=== PATIENT | male | born 1970 | race Caucasian/White ===

== ENCOUNTER → 2018-06-03 14:01 | Outpatient (CLI) | payer SELFPAY ==
[2018-06-03 14:34] LABS: Hematocrit 43.5 % (41-53); Hemoglobin 14.2 g/dL (13.5-17.5); Mean Corpuscular HGB Conc 32.5 % (30-36); Mean Corpuscular Hemoglobin 29.2 PG (26-34); Mean Corpuscular Volume 89.7 fL (80-100); Platelet Count 259 X10^3/uL (150-400); Red Blood Cell Count 4.85 X10^6/uL (4.5-5.9); Red Cell Distribution Width 16.7 % (11.6-14.8); White Blood Cell Count 7.6 X10^3/uL (4.5-11.0)
[2018-06-03 14:54] LABS: Neutrophils Absolute Manual 5092 /uL (3000-5900); Total Cells Counted 100
[2018-06-03 14:55] LABS: BUN Creatinine Ratio 8.9 (6-22); Blood Urea Nitrogen 8 mg/dL (9-20); Calcium 8.9 mg/dL (8.4-10.2); Carbon Dioxide 29 mmol/L (22-32); Chloride 99 mmol/L (98-107); Estimated Glomerular Filt Rate > 60.0 mL/min (>60); Glucose 93 mg/dL (70-100); HEMOLYSIS < 15 (0-50); Morphology Comment Normal Morphology; Potassium 4.2 mmol/L (3.4-5.1); Sodium 137 mmol/L (137-145)
== END ==
PROVIDERS: PCP Physician Assistant; Visit Provider Physician Assistant
DX: R60.9 Edema, unspecified (principal); L03.90 Cellulitis, unspecified
CPT/HCPCS: 36415; 80048; 83880; 85025

== ENCOUNTER 2018-06-13 14:31 | Emergency (ER) | payer SELFPAY ==
[2018-06-13 14:38] VITALS: BP 152/97; PULSE 118; RESP 18; TEMP 36.8; O2SAT 97; BMI 62.4
--- NOTE | 2018-06-13 15:03 | DI.RAD.S_ITS ---
PROCEDURE: XR CHEST 2V INDICATIONS: sob, chf, recent abx TECHNIQUE: 2 views of the chest were acquired. COMPARISON: None. FINDINGS: Surgical changes and devices: None. Lungs and pleura: There is mild pulmonary edema. A small right pleural effusion is present with asymmetric patchy right basilar opacities. Mediastinum: Heart size is enlarged. Bones and chest wall: No suspicious bony abnormalities. Soft tissues appear unremarkable. IMPRESSION: 1. Asymmetric right basilar opacities suggestive of consolidation and pneumonia. 2. Small right pleural effusion. 3. Mild pulmonary edema. Dictated by: Faraz Bee M.D. on 06/13/2018 at 15:43 Approved by: Faraz Bee M.D. on 06/13/2018 at 15:44
[2018-06-13 15:04] VITALS: BP 154/96; PULSE 118; RESP 28; O2SAT 95
[2018-06-13 15:18] LABS: Add Manual Diff / Slide Review NO; Eosinophils Percent Auto 0.4 % (2-4); Hematocrit 45.4 % (41-53); Hemoglobin 14.8 g/dL (13.5-17.5); Lymphocytes Percent Auto 18.6 % (25-40); Mean Corpuscular HGB Conc 32.6 % (30-36); Mean Corpuscular Hemoglobin 28.6 PG (26-34); Mean Corpuscular Volume 87.7 fL (80-100); Monocytes Percent Auto 11.4 % (3-14); Neutrophils Absolute Auto 5600 /uL (3000-5900); Neutrophils Percent Auto 68.6 % (50-75); Platelet Count 299 X10^3/uL (150-400); Red Blood Cell Count 5.18 X10^6/uL (4.5-5.9); Red Cell Distribution Width 16.4 % (11.6-14.8); White Blood Cell Count 8.2 X10^3/uL (4.5-11.0)
[2018-06-13] MEDS: ASPIRIN 81 MG TAB 324 MG PO (15:39)
[2018-06-13 15:52] LABS: INR 1.2 (0.9-1.3); Prothrombin Time 13.5 SECONDS (10.1-12.7)
[2018-06-13 15:55] LABS: PTT Partial Thromboplastin Tim 24 SECONDS (26.4-36.2)
[2018-06-13 16:00] LABS: Alanine Aminotransferase 23 IU/L (21-72); Albumin 3.7 g/dL (3.5-5.0); Albumin Globulin Ratio 1.3 (1.0-2.8); Alkaline Phosphatase 63 U/L (38-126); Aspartate Aminotransferase 31 IU/L (17-59); BUN Creatinine Ratio 12.5 (6-22); Bilirubin Total 2.3 mg/dL (0.2-1.3); Blood Urea Nitrogen 10 mg/dL (9-20); Carbon Dioxide 30 mmol/L (22-32); Chloride 96 mmol/L (98-107); Creatine Kinase 96 U/L (55-170); Estimated Glomerular Filt Rate > 60.0 mL/min (>60); Globulin 2.9 g/dL (1.7-4.1); Glucose 97 mg/dL (70-100); HEMOLYSIS < 15 (0-50); Lipase 59 U/L (23-300); Potassium 3.9 mmol/L (3.4-5.1); Sodium 136 mmol/L (137-145); Total Protein 6.6 g/dL (6.3-8.2)
[2018-06-13 16:10] LABS: Troponin I 0.019 ng/mL (0.01-0.034)
[2018-06-13 16:34] VITALS: BP 125/90; PULSE 112; RESP 24; O2SAT 96
[2018-06-13 17:02] VITALS: BP 137/89; PULSE 114; RESP 24; O2SAT 96
[2018-06-13 17:51] VITALS: BP 136/94; PULSE 117; RESP 20; O2SAT 100
[2018-06-13] MEDS: FUROSEMIDE 100 MG/10 ML VIAL 60 MG IV (18:12)
--- NOTE | 2018-06-13 18:13 | ED.RECABL ---
HPI - Recheck/Abnormal Lab/Rx General Chief Complaint: Recheck/Abnormal Lab/Rx Stated Complaint: sent from walk in clinic for abnormal EKG Time Seen by Provider: 06/13/18 14:54 History of Present Illness HPI narrative: HPI 47-year-old morbidly obese male with a history of CHF, poor medication compliance, and recent weight gain with orthopnea and increased abdominal and bilateral pedal edema presents from urgent care for evaluation after recent additional weight gain despite 10 mg Lasix daily. Patient denies recent chest pain, cough, fevers, chills. Patient previously has seen a taper/finisher for a history of CAD with 2 stents. M/S/F/SocHx notable for: please see HPI; remainder reviewed with patient and in chart. ROS: Negative constitutional, eye, cardiovascular, pulmonary, GI, , MSK, skin, neurologic, psychiatric, endocrine unless noted in the HPI. Exam Gen: Pleasant, non-toxic appearing, resting comfortably. HEENT: NC, AT, PEERL, EOMI. Resp: diminished breath sounds in lung bases bilaterally, otherwise clear to auscultation bilaterally, normal work of breathing, no accessory muscle usage. Card: Regular rate and rhythm with no murmurs, rubs, or gallops, extremities warm and well perfused. 1+ pitting edema in the lower abdominal wall, 2+ pitting edema to the knees bilaterally. GI: Non-tender to palpation throughout all quadrants, no focal tenderness at McBurney's point, negative Lewis's sign, non-distended, no rebound or guarding. : No suprapubic tenderness to palpation. MSK: No visible deformities, strength and tone without visually appreciable deficit. Patient ambulatory with a normal narrow based nonantalgic gait. Skin: Normal color with no visible lesions. Neuro: AO x 3, no facial asymmetry, vision and hearing WNL. Psych: Mood and affect appropriate. Labs / Imaging: WBC 8.2, hemoglobin 14.8 PT/INR 1.2 sodium 136, potassium 3.9, BUN 10, creatinine 0.80, troponin 0.019, BNP 671.0 CXR: asymmetric right basilar opacity suggestive of consolidation pneumonia. Small right pleural effusion. Mild pulmonary edema. MDM Previous chart, nursing note, labs, imaging, and vitals reviewed. A: 47-year-old morbidly obese male with a history of CHF, poor medication compliance, and recent weight gain with orthopnea and increased abdominal and bilateral pedal edema presents from urgent care for evaluation after recent additional weight gain despite 10 mg Lasix daily. DDx & Evaluation: patient was clinically worsening congestive heart failure, mild tachycardia, nonischemic EKG, and negative troponin. Suspect tachycardia is secondary to demand, patient is without anemia. No evidence of valvular abnormalities by auscultation, no recent history of chest pain, acute changes in clinical trajectory, or other findings to suggest a recent silent [place]. Patient given 60 mg Lasix IV, discharge with RX for 40 mg daily, and instructions to follow up immediately with his taper/finisher. Patient instructed to return to the ED in 2 days for repeat electrolyte check and repeat examination should he be unable to follow up with his taper/finisher in a timely manner. Extensive discussion was had with the patient regarding hospitalization for inpatient echo and initial diuresis, patient wished to be discharged home, as he was resting comfortably, clinically well compensated, and there is no recent discernible change in his trajectory he is appropriate for outpatient management, patient is aware that this is a slightly higher risk approach but does not wish to be hospitalized. Impression: congestive heart failure (please reference below for remainder of encounter information) Related Data Previous Rx's Medication Instructions Recorded furosemide 20 mg tablet 20 mg PO BID #60 tab 06/03/18 Allergies Allergy/AdvReac Type Severity Reaction Status Date / Time No Known Allergies Allergy Uncoded 06/13/18 12:39 [facility] Social History Smoking Status: Former smoker Exam Initial Vital Signs Initial Vital Signs: Vital Signs Temperature 98.2 F 06/13/18 14:38 Pulse Rate 118 H 06/13/18 14:38 Respiratory Rate 18 06/13/18 14:38 Blood Pressure 152/97 H 06/13/18 14:38 Pulse Oximetry 97 06/13/18 14:38 Course Orders Ordered: ED Orders 06/13/18 15:00 B Type Natriuretic Peptide Stat Complete Blood Count AUTO DIFF Stat 06/13/18 15:03 Chest [XR chest 2V] Stat 06/13/18 15:35 Comprehensive Metabolic Panel Stat Lipase Stat Partial Thromboplastin Time Stat Prothrombin Time INR Stat Troponin & CK Cardiac Panel Stat Discontinued Medications Aspirin (Aspirin Chew) 324 mg PO NOW ONE Stop: 06/13/18 15:04 Last Admin: 06/13/18 15:39 Dose: 243 mg Furosemide (Lasix) 60 mg IV NOW ONE Stop: 06/13/18 18:11 Last Admin: 06/13/18 18:12 Dose: 60 mg Vital Signs - 8 hr 06/13/18 14:38 06/13/18 15:04 06/13/18 16:34 Temperature 98.2 F Pulse Rate 118 H 118 H 112 H Respiratory Rate 18 28 H 24 Blood Pressure 152/97 H Blood Pressure [Left Wrist] 154/96 H 125/90 H Pulse Oximetry 97 95 96 06/13/18 17:02 06/13/18 17:51 Temperature Pulse Rate 114 H 117 H Respiratory Rate 24 20 Blood Pressure Blood Pressure [Left Wrist] 137/89 H 136/94 H Pulse Oximetry 96 100 MDM - Recheck/Abnormal Lab/Rx Lab Data Result diagrams: 06/13/18 15:00 06/13/18 15:35 Lab Results 06/13/18 06/13/18 06/13/18 Range/Units 15:00 15:00 15:35 WBC 8.2 (4.5-11.0) X10^3/uL RBC 5.18 (4.5-5.9) X10^6/uL Hgb 14.8 (13.5-17.5) g/dL Hct 45.4 (41-53) % MCV 87.7 (80-100) fL MCH 28.6 (26-34) PG MCHC 32.6 (30-36) % RDW 16.4 H (11.6-14.8) % Plt Count 299 (150-400) X10^3/uL Neut % (Auto) 68.6 (50-75) % Lymph % (Auto) 18.6 L (25-40) % [place] % (Auto) 11.4 (3-14) % Eos % (Auto) 0.4 L (2-4) % Baso % (Auto) 1.0 (0-2) % Neut # (Auto) 5600 (3934-2207) /uL PT 13.5 H (10.1-12.7) SECONDS INR 1.2 (0.9-1.3) APTT 24 L (26.4-36.2) SECONDS Sodium (137-145) mmol/L Potassium (3.4-5.1) mmol/L Chloride (98-107) mmol/L Carbon Dioxide (22-32) mmol/L BUN (9-20) mg/dL Creatinine (0.66-1.25) mg/dL Estimated GFR (>60) mL/min BUN/Creatinine Ratio (6-22) Glucose (70-100) mg/dL Calcium (8.4-10.2) mg/dL Total Bilirubin (0.2-1.3) mg/dL AST (17-59) IU/L ALT (21-72) IU/L Alkaline Phosphatase (38-126) U/L Total Creatine Kinase (55-170) U/L Troponin I (0.01-0.034) ng/mL B-Natriuretic Peptide 671.0 H (<100) Total Protein (6.3-8.2) g/dL Albumin (3.5-5.0) g/dL Globulin (1.7-4.1) g/dL Albumin/Globulin Ratio (1.0-2.8) Lipase (23-300) U/L 06/13/18 Range/Units 15:35 WBC (4.5-11.0) X10^3/uL RBC (4.5-5.9) X10^6/uL Hgb (13.5-17.5) g/dL Hct (41-53) % MCV (80-100) fL MCH (26-34) PG MCHC (30-36) % RDW (11.6-14.8) % Plt Count (150-400) X10^3/uL Neut % (Auto) (50-75) % Lymph % (Auto) (25-40) % [place] % (Auto) (3-14) % Eos % (Auto) (2-4) % Baso % (Auto) (0-2) % Neut # (Auto) (8452-6652) /uL PT (10.1-12.7) SECONDS INR (0.9-1.3) APTT (26.4-36.2) SECONDS Sodium 136 L (137-145) mmol/L Potassium 3.9 (3.4-5.1) mmol/L Chloride 96 L (98-107) mmol/L Carbon Dioxide 30 (22-32) mmol/L BUN 10 (9-20) mg/dL Creatinine 0.80 (0.66-1.25) mg/dL Estimated GFR > 60.0 (>60) mL/min BUN/Creatinine Ratio 12.5 (6-22) Glucose 97 (70-100) mg/dL Calcium 9.0 (8.4-10.2) mg/dL Total Bilirubin 2.3 H (0.2-1.3) mg/dL AST 31 (17-59) IU/L ALT 23 (21-72) IU/L Alkaline Phosphatase 63 (38-126) U/L Total Creatine Kinase 96 (55-170) U/L Troponin I 0.019 (0.01-0.034) ng/mL B-Natriuretic Peptide (<100) Total Protein 6.6 (6.3-8.2) g/dL Albumin 3.7 (3.5-5.0) g/dL Globulin 2.9 (1.7-4.1) g/dL Albumin/Globulin Ratio 1.3 (1.0-2.8) Lipase 59 (23-300) U/L Discharge Plan Departure Prescriptions: No Action furosemide [Lasix] 20 mg tablet 20 mg PO BID Qty: 60 RF: 0
[2018-06-13 18:15] VITALS: BP 139/105; PULSE 111; RESP 18
== END 2018-06-13 18:29 | disposition home or self-care (01) ==
PROVIDERS: Emergency Provider Emergency Medicine; Family Provider Family Medicine; PCP Physician Assistant
DX: I50.9 Heart failure, unspecified (principal)
CPT/HCPCS: 36415; 36591; 71046; 80053; 82550; 82553; 83690; 83880; 84484; 85025; 85610; 85730; 93005; 93010; 96374; 99283; 99285; J1940

== ENCOUNTER 2018-06-15 11:12 | Emergency (ER) | payer SELFPAY ==
[2018-06-15 11:26] VITALS: BP 147/99; PULSE 117; RESP 20; TEMP 36.8; O2SAT 97; BMI 62.4
--- NOTE | 2018-06-15 11:51 | PC.NURSE ---
states is feeling better than yesterday, asked to come here for follow up, does not have primary.
--- NOTE | 2018-06-15 12:12 | ED_ITS ---
HPI - SOB/Dyspnea General Chief Complaint: Shortness of Breath/Dyspnea Stated Complaint: ELECTROLYTES/REEVALTUATION Time Seen by Provider: 06/15/18 12:07 Source: patient Mode of arrival: ambulatory History of Present Illness Patient is a 47-year-old male seen here in the emergency department a couple days ago for what appeared to be an exacerbation of CHF. According to the providers noted that time it did appear that an admission was offered however the patient did not want to be admitted. The patient did increase his Lasix. He stated that he could not get in to see his human resources hr representative in a ?timely manner ? so he return to the emergency department today for recheck of his labs and re- evaluation as he was instructed during his last visit here. He states that he feels much better since his last visit. Still having some swelling in his right lower extremity however this is not new for him. Related Data Home Medications Medication Instructions Recorded Confirmed Blood Pressure Support 1 tab PO BID 06/15/18 06/15/18 Platexia 1 tab PO BID 06/15/18 06/15/18 Previous Rx's Medication Instructions Recorded furosemide [Lasix] 40 mg PO DAILY #14 tab 06/13/18 Allergies Allergy/AdvReac Type Severity Reaction Status Date / Time No Known Drug Allergies Allergy Verified 06/15/18 11:26 Review of Systems Constitutional Denies fever(s) and Denies headache(s) ENT Ears, Nose, Mouth, and Throat: Denies vertigo, Denies dizziness and Denies headache(s) Cardiovascular Denies chest pain and Denies dyspnea Respiratory Denies dyspnea Gastrointestinal Gastrointestinal: Reports bloating, Denies diarrhea, Denies nausea and Denies vomiting Genitourinary Denies dysuria Musculoskeletal Denies myalgias Comments: Right lower extremity swelling Integumentary/Breasts Denies lesions and Denies rash Neurologic Denies vertigo, Denies dizziness and Denies headache(s) Hematologic/Lymphatic Denies easy bleeding and Denies easy bruising [facility] Medical History Congestive heart failure (Acute) Coronary artery disease (Acute) Surgical History No pertinent past surgical history (Acute) Social History Smoking Status: Former smoker Exam Initial Vital Signs Initial Vital Signs: Vital Signs Temperature 98.3 F 06/15/18 11:26 Pulse Rate 117 H 06/15/18 11:26 Respiratory Rate 20 06/15/18 11:26 Blood Pressure 147/99 H 06/15/18 11:26 Pulse Oximetry 97 06/15/18 11:26 Const General: cooperative, healthy appearing, comfortable, well developed, well groomed and No acute distress Nutritional Appearance: obese Resp Effort & Inspection: normal respiratory effort Auscultation: clear to auscultation bilaterally Cardio Rate: tachycardic Rhythm: regular rhythm Pulses: radial pulses present Skin Lesions: no lesions Rashes: no rashes Neuro General: alert, awake and oriented x3 Cognition: normal cognition Speech: speech normal Extrem General: normal to inspection, No calf tenderness and edema (Right lower extremity) Psych Appearance: grossly normal and well kempt Course Orders Ordered: ED Orders 06/15/18 12:08 B Type Natriuretic Peptide Stat Complete Blood Count AUTO DIFF Stat Comprehensive Metabolic Panel Stat Vital Signs - 8 hr 06/15/18 11:26 06/15/18 12:17 06/15/18 13:00 Temperature 98.3 F Pulse Rate 117 H 113 H 112 H Respiratory Rate 20 25 H 34 H Blood Pressure 147/99 H Blood Pressure [Left Arm] 136/94 H 141/101 H Pulse Oximetry 97 100 100 06/15/18 13:32 Temperature Pulse Rate 108 H Respiratory Rate 25 H Blood Pressure Blood Pressure [Left Arm] 125/81 H Pulse Oximetry 100 MDM - SOB/Dyspnea Lab Data Attestation: I reviewed the patient's lab results. Result diagrams: 06/15/18 12:08 06/15/18 12:08 Lab Results 06/15/18 06/15/18 Range/Units 12:08 12:08 WBC 6.5 (4.5-11.0) X10^3/uL RBC 4.84 (4.5-5.9) X10^6/uL Hgb 14.2 (13.5-17.5) g/dL Hct 42.3 (41-53) % MCV 87.6 (80-100) fL MCH 29.3 (26-34) PG MCHC 33.5 (30-36) % RDW 16.6 H (11.6-14.8) % Plt Count 258 (150-400) X10^3/uL Neut % (Auto) 61.5 (50-75) % Lymph % (Auto) 24.6 L (25-40) % [place] % (Auto) 11.9 (3-14) % Eos % (Auto) 1.0 L (2-4) % Baso % (Auto) 1.0 (0-2) % Neut # (Auto) 4000 (4667-0439) /uL Sodium 136 L (137-145) mmol/L Potassium 3.6 (3.4-5.1) mmol/L Chloride 97 L (98-107) mmol/L Carbon Dioxide 29 (22-32) mmol/L BUN 12 (9-20) mg/dL Creatinine 0.90 (0.66-1.25) mg/dL Estimated GFR > 60.0 (>60) mL/min BUN/Creatinine Ratio 13.3 (6-22) Glucose 100 (70-100) mg/dL Calcium 9.1 (8.4-10.2) mg/dL Total Bilirubin 1.5 H (0.2-1.3) mg/dL AST 38 (17-59) IU/L ALT 29 (21-72) IU/L Alkaline Phosphatase 62 (38-126) U/L B-Natriuretic Peptide 309.0 H (<100) Total Protein 6.9 (6.3-8.2) g/dL Albumin 4.0 (3.5-5.0) g/dL Globulin 2.9 (1.7-4.1) g/dL Albumin/Globulin Ratio 1.4 (1.0-2.8) MDM Narrative Medical decision making narrative: Patient reports an improvement of his symptoms since last time he was here in the emergency department. Patient was tachycardic however he states that he has always been tachycardic since his heart attack which worsens when he comes the emergency department secondary to anxiety. He denies any chest pain. His potassium is unremarkable. His BNP has improved since his last visit. Will make no changes to his medication today. He was instructed that he needed to call his human resources hr representative and primary doctor for a follow-up. He expressed understanding and agreement with plan. Discharge Plan Departure Patient Disposition: Home Clinical Impression: CHF (congestive heart failure) Instructions: Heart Failure Activity Restrictions/Additional Instructions: Continue all the medications as directed from the last time you are here in the emergency department. Highly recommend that you contact your primary doctor and also your human resources hr representative for a follow-up. Return to the emergency department for any new or worsening symptoms Prescriptions: No Action Blood Pressure Support 1 tab PO BID RF: 0 Platexia 1 tab PO BID RF: 0 furosemide [Lasix] 40 mg tablet 40 mg PO DAILY Qty: 14 RF: 0
[2018-06-15 12:17] VITALS: BP 136/94; PULSE 113; RESP 25; O2SAT 100
[2018-06-15 12:19] LABS: Add Manual Diff / Slide Review NO; Hematocrit 42.3 % (41-53); Hemoglobin 14.2 g/dL (13.5-17.5); Lymphocytes Percent Auto 24.6 % (25-40); Mean Corpuscular HGB Conc 33.5 % (30-36); Mean Corpuscular Hemoglobin 29.3 PG (26-34); Mean Corpuscular Volume 87.6 fL (80-100); Monocytes Percent Auto 11.9 % (3-14); Neutrophils Absolute Auto 4000 /uL (3000-5900); Neutrophils Percent Auto 61.5 % (50-75); Platelet Count 258 X10^3/uL (150-400); Red Blood Cell Count 4.84 X10^6/uL (4.5-5.9); Red Cell Distribution Width 16.6 % (11.6-14.8); White Blood Cell Count 6.5 X10^3/uL (4.5-11.0)
[2018-06-15 12:30] LABS: Alanine Aminotransferase 29 IU/L (21-72); Albumin Globulin Ratio 1.4 (1.0-2.8); Alkaline Phosphatase 62 U/L (38-126); Aspartate Aminotransferase 38 IU/L (17-59); BUN Creatinine Ratio 13.3 (6-22); Bilirubin Total 1.5 mg/dL (0.2-1.3); Blood Urea Nitrogen 12 mg/dL (9-20); Calcium 9.1 mg/dL (8.4-10.2); Carbon Dioxide 29 mmol/L (22-32); Chloride 97 mmol/L (98-107); Estimated Glomerular Filt Rate > 60.0 mL/min (>60); Globulin 2.9 g/dL (1.7-4.1); Glucose 100 mg/dL (70-100); HEMOLYSIS < 15 (0-50); Potassium 3.6 mmol/L (3.4-5.1); Sodium 136 mmol/L (137-145); Total Protein 6.9 g/dL (6.3-8.2)
[2018-06-15 13:00] VITALS: BP 141/101; PULSE 112; RESP 34; O2SAT 100
[2018-06-15 13:32] VITALS: BP 125/81; PULSE 108; RESP 25; O2SAT 100
[2018-06-15 13:52] VITALS: BP 125/80; PULSE 100; RESP 26; O2SAT 99
== END 2018-06-15 13:58 | disposition home or self-care (01) ==
PROVIDERS: Emergency Provider Emergency Medicine; Family Provider Family Medicine; PCP Physician Assistant
DX: I50.9 Heart failure, unspecified (principal)
CPT/HCPCS: 36415; 80053; 83880; 85025; 99283

== ENCOUNTER 2018-07-02 16:43 | Emergency (ER) | payer SELFPAY ==
[2018-07-02 16:46] VITALS: BP 137/94; PULSE 122; RESP 20; TEMP 36.1; O2SAT 99; BMI 61.0
--- NOTE | 2018-07-02 17:01 | DI.RAD.S_ITS ---
PROCEDURE: XR CHEST 1V INDICATIONS: CONGESTIVE HEART FAILURE TECHNIQUE: One view of the chest was acquired. COMPARISON: [facility], CR, XR CHEST 2V, 06/13/2018, 14:57. FINDINGS: Surgical changes and devices: None. Lungs and pleura: No pleural effusions or pneumothorax. Lungs are mildly edematous. Mediastinum: Mediastinal contours appear normal. Heart size is globally enlarged, chronic. Bones and chest wall: No suspicious bony lesions. Overlying soft tissues appear unremarkable. IMPRESSION: Acute exacerbation of chronic CHF pattern. Dictated by: Fred Montes M.D. on 07/02/2018 at 17:28 Approved by: Fred Montes M.D. on 07/02/2018 at 17:28
--- NOTE | 2018-07-02 17:03 | ED_ITS ---
HPI - SOB/Dyspnea General Chief Complaint: Shortness of Breath/Dyspnea Stated Complaint: FLUID IN STOMACH Time Seen by Provider: 07/02/18 17:01 Source: patient Mode of arrival: ambulatory Limitations: no limitations Related Data Home Medications Medication Instructions Recorded Confirmed Blood Pressure Support 1 tab PO BID 06/15/18 06/15/18 Platexia 1 tab PO BID 06/15/18 06/15/18 Previous Rx's Medication Instructions Recorded furosemide [Lasix] 40 mg PO DAILY #14 tab 06/13/18 Allergies Allergy/AdvReac Type Severity Reaction Status Date / Time No Known Drug Allergies Allergy Verified 07/02/18 16:52 Review of Systems Review of Systems All systems reviewed & are unremarkable except as noted in HPI and below Constitutional Denies chills, Denies fever(s), Denies lethargy and Denies weakness Eyes Denies change in vision, Denies eye discharge, Denies irritation and Denies loss of vision ENT Ears, Nose, Mouth, and Throat: Denies change in voice, Denies neck pain and Denies sore throat Cardiovascular Denies chest pain, Denies irregular heart rhythm, Denies lightheadedness, Denies palpitations, Denies dyspnea, Denies dyspnea on exertion and Denies orthopnea Respiratory Denies cough, Denies dyspnea, Denies dyspnea on exertion and Denies wheezing Gastrointestinal Gastrointestinal: Denies abdominal pain, Denies change in bowel habits, Denies diarrhea, Denies nausea and Denies vomiting Genitourinary Denies hematuria, Denies flank pain, Denies urinary incontinence and Denies urinary urgency Musculoskeletal Denies neck pain Integumentary/Breasts Denies pruritus, Denies erythema, Denies rash and Denies wounds Neurologic Denies confusion, Denies loss of vision and Denies weakness Psychiatric Denies anxiety, Denies confusion, Denies depression, Denies homicidal ideation and Denies suicidal ideation Endocrine Denies palpitations Hematologic/Lymphatic Denies easy bruising Allergic/Immunologic Denies wheezing PFSH Medical History Congestive heart failure (Chronic) Coronary artery disease (Chronic) Surgical History H/O hernia repair (Resolved) Status post coronary artery stent placement (Resolved) Social History (Reviewed 06/15/18 @ 13:45 by JEREMI Morrison Smoking Status: Former smoker Exam Initial Vital Signs Initial Vital Signs: Vital Signs Temperature 96.9 F L 07/02/18 16:46 Pulse Rate 122 H 07/02/18 16:46 Respiratory Rate 20 07/02/18 16:46 Blood Pressure 137/94 H 07/02/18 16:46 Pulse Oximetry 99 07/02/18 16:46 Const General: cooperative and well developed Nutritional Appearance: well nourished Orientation: alert, awake, oriented x3 and not confused [facility] Head: normocephalic and atraumatic Ears: external ears normal and TM's normal bilaterally Nose: external nose normal and No nasal discharge Face and sinus: sinuses nontender, face symmetric, no sinus tenderness and No dry mucous membranes Mouth: oral mucosae normal and moist mucous membranes Teeth and gingiva: dentition normal Throat: tonsils normal and uvula midline Eyes General: appearance normal, both eyes and all related structures Eyelids: eyelids normal Conjunctivae: conjunctivae normal Sclera: sclerae normal Pupils: PERRL EOM: EOM intact bilaterally Neck Neck: normal visual inspection, trachea midline, No lymphadenopathy, No midline deformity and No JVD Lymphatic: No lymphedema Chest Chest: normal inspection of the chest Resp Effort & Inspection: normal respiratory effort, able to speak in complete sentences, no respiratory distress and no use of accessory muscles Auscultation: clear to auscultation bilaterally, no rales, no rhonchi and no wheezes Cardio Rate: regular rate Rhythm: regular rhythm Heart Sounds: no click, no gallops, no murmurs and no rubs Pulses: normal peripheral pulses GI Inspection: non-distended Palpation: soft, no hepatosplenomegaly, No guarding, No pulsatile mass and No tender Auscultation: normal bowel sounds Back/Spine/Pelvis Back: No CVA tenderness Cervical Spine: cervical ROM normal and No pain with cervical ROM Thoracic/Lumbar Spine: thoracic and lumbar spine normal to inspection Skin General: no rashes or lesions noted, No jaundice and No petechiae Neuro General: alert, oriented x3, gait normal and no focal motor deficits Speech: speech normal Extrem General: full ROM, no clubbing, cyanosis or edema, no pedal edema and no calf tenderness Psych Appearance: well kempt Mental Status: mental status grossly normal Attitude: cooperative Thought Content: normal and suicidality Judgment: judgment good Course Orders Ordered: ED Orders 07/02/18 17:01 XR chest 1V Stat B Type Natriuretic Peptide Stat EKG-12 Lead Stat 07/02/18 17:02 Basic Metabolic Panel Stat Complete Blood Count AUTO DIFF Stat Vital Signs - 8 hr 07/02/18 16:46 Temperature 96.9 F L Pulse Rate 122 H Respiratory Rate 20 Blood Pressure 137/94 H Pulse Oximetry 99 Discharge Plan Departure Prescriptions: No Action Blood Pressure Support 1 tab PO BID RF: 0 Platexia 1 tab PO BID RF: 0 furosemide [Lasix] 40 mg tablet 40 mg PO DAILY Qty: 14 RF: 0
--- NOTE | 2018-07-02 17:18 | ED.SOB ---
HPI - SOB/Dyspnea <Lourdes Gerber PA-C - Last Filed: 07/02/18 21:19> General Chief Complaint: Shortness of Breath/Dyspnea Stated Complaint: FLUID IN STOMACH Time Seen by Provider: 07/02/18 17:01 Source: patient Mode of arrival: ambulatory Limitations: no limitations History of Present Illness This 47 year old male returns to the ED with persistent lower extremity swelling that he feels has gradually moved into his abdomen and caused distention. He states there is not any acute change today and has noted this coming on since he was last here. He states that he has been working and doing his usual activities but this keeps him from resting comfortably at night due to the abdominal distension (he has to lay on his side rather than on his back). He states it is better somewhat 1st thing in the morning. He denies any acute dyspnea or change in his breathing. He denies any chest pain. He states his abdomen is not painful, just feels full and has caused reduced appetite. He has not had vomiting. He denies any new pain in his extremities or any other new symptoms on systems review. He states that he is taking 40 mg of Lasix daily and does not feel like this has improved, however he is not taking his blood pressure or other medications and states he is going ?all natural?, taking naturopathic support supplements instead. He has been taking these for some time prior to this developing Related Data Home Medications Medication Instructions Recorded Confirmed Blood Pressure Support 1 tab PO BID 06/15/18 07/02/18 Platexia 1 tab PO BID 06/15/18 07/02/18 Previous Rx's Medication Instructions Recorded furosemide [Lasix] 40 mg PO DAILY #14 tab 06/13/18 potassium chloride 10 meq PO BID #14 tab 07/02/18 Allergies Allergy/AdvReac Type Severity Reaction Status Date / Time No Known Drug Allergies Allergy Verified 07/02/18 16:52 Review of Systems <Lourdes Gerber PA-C - Last Filed: 07/02/18 21:19> Review of Systems All systems reviewed & are unremarkable except as noted in HPI and below Constitutional Denies weakness Eyes Denies loss of vision Neurologic Denies confusion, Denies loss of vision and Denies weakness Psychiatric Denies confusion Exam <Lourdes Gerber PA-C - Last Filed: 07/02/18 21:19> Narrative Exam Narrative: GENERAL APPEARANCE: Patient sitting comfortably, in no distress. NECK/THYROID: Neck supple, no JVD. No masses LUNGS: Clear to auscultation bilaterally. HEART: Regular rate and rhythm without murmur, rapid, normal S1, S2, no S3 or S4. ABDOMEN: Obese, firm without clear distention, ND, + BS x 4 quadrants EXTREMITIES: No cyanosis moderate pitting to the thighs, also some brawny edema. No calf tenderness NEUROLOGIC: Alert and oriented, normal speech, gait and coordination. Initial Vital Signs Initial Vital Signs: Vital Signs Temperature 96.9 F L 07/02/18 16:46 Pulse Rate 122 H 07/02/18 16:46 Respiratory Rate 20 07/02/18 16:46 Blood Pressure 137/94 H 07/02/18 16:46 Pulse Oximetry 99 07/02/18 16:46 <Manjeet Sun DO - Last Filed: 07/03/18 07:01> Initial Vital Signs Initial Vital Signs: Vital Signs Temperature 96.9 F L 07/02/18 16:46 Pulse Rate 122 H 07/02/18 16:46 Respiratory Rate 20 07/02/18 16:46 Blood Pressure 137/94 H 07/02/18 16:46 Pulse Oximetry 99 07/02/18 16:46 Course <Lourdes Gerber PA-C - Last Filed: 07/02/18 21:19> Additional Information: I reviewed findings with Dr. Sun who saw patient previously. He agrees that leads were likely reversed on previous EKG. Patient has no acute CP, dyspnea or other changes today. He came in due to frustration with worsening edema, has not had f/u with cardiology. W/u is consistent with previous CHF, exacerbation. He is feeling markedly improved after furosemide. He is agreeable with plan to increase his oral dose and f/u with cardiology in a few days. Stressed importance of this as well as rechecking electrolytes at that time. Patient also agreed to return if any changes or acutely worsening sx in the interim Orders Ordered: Discontinued Medications Furosemide (Lasix) 80 mg IV NOW ONE Stop: 07/02/18 17:41 Last Admin: 07/02/18 17:50 Dose: 80 mg Potassium Chloride (Klor-Con M10) 10 meq PO NOW ONE Stop: 07/02/18 18:30 Last Admin: 07/02/18 18:44 Dose: 10 meq Vital Signs - 8 hr 07/02/18 16:46 07/02/18 20:10 Temperature 96.9 F L Pulse Rate 122 H 91 H Respiratory Rate 20 18 Blood Pressure 137/94 H 122/85 Pulse Oximetry 99 98 <Manjeet Sun DO - Last Filed: 07/03/18 07:01> Orders Ordered: Discontinued Medications Furosemide (Lasix) 80 mg IV NOW ONE Stop: 07/02/18 17:41 Last Admin: 07/02/18 17:50 Dose: 80 mg Potassium Chloride (Klor-Con M10) 10 meq PO NOW ONE Stop: 07/02/18 18:30 Last Admin: 07/02/18 18:44 Dose: 10 meq Vital Signs - 8 hr 07/02/18 16:46 07/02/18 20:10 Temperature 96.9 F L Pulse Rate 122 H 91 H Respiratory Rate 20 18 Blood Pressure 137/94 H 122/85 Pulse Oximetry 99 98 MDM - SOB/Dyspnea <Lourdes Gerber PA-C - Last Filed: 07/02/18 21:19> Lab Data Attestation: I reviewed the patient's lab results. Result diagrams: 07/02/18 17:45 07/02/18 17:45 Lab Results 07/02/18 07/02/18 07/02/18 Range/Units 17:45 17:45 17:45 WBC 6.8 (4.5-11.0) X10^3/uL RBC 5.11 (4.5-5.9) X10^6/uL Hgb 14.6 (13.5-17.5) g/dL Hct 44.8 (41-53) % MCV 87.7 (80-100) fL MCH 28.5 (26-34) PG MCHC 32.5 (30-36) % RDW 16.9 H (11.6-14.8) % Plt Count 290 (150-400) X10^3/uL Neut % (Auto) 60.6 (50-75) % Lymph % (Auto) 26.3 (25-40) % Hayes % (Auto) 11.5 (3-14) % Eos % (Auto) 0.7 L (2-4) % Baso % (Auto) 0.9 (0-2) % Neut # (Auto) 4100 (3248-7329) /uL Sodium 137 (137-145) mmol/L Potassium 5.0 (3.4-5.1) mmol/L Chloride 94 L (98-107) mmol/L Carbon Dioxide 33 H (22-32) mmol/L BUN 14 (9-20) mg/dL Creatinine 1.00 (0.66-1.25) mg/dL Estimated GFR > 60.0 (>60) mL/min BUN/Creatinine Ratio 14.0 (6-22) Glucose 107 H (70-100) mg/dL Calcium 9.1 (8.4-10.2) mg/dL B-Natriuretic Peptide 707.0 H (<100) Imaging Data Chest x-ray: Radiologist's impression: View Report History [address] [address] XRay Report Signed Patient: Davonte Temple MR#: [id number] : 1970 Acct:[id number] Age/Sex: 47 / M Date of Service: 07/02/18 Loc: ED Accession Number: [id number] Procedure: XR chest 1V Ordering Provider: Lourdes Gerber P.A-C PROCEDURE: XR CHEST 1V INDICATIONS: CONGESTIVE HEART FAILURE TECHNIQUE: One view of the chest was acquired. COMPARISON: [facility], , XR CHEST 2V, 06/13/2018, 14:57. FINDINGS: Surgical changes and devices: None. Lungs and pleura: No pleural effusions or pneumothorax. Lungs are mildly edematous. Mediastinum: Mediastinal contours appear normal. Heart size is globally enlarged, chronic. Bones and chest wall: No suspicious bony lesions. Overlying soft tissues appear unremarkable. IMPRESSION: Acute exacerbation of chronic CHF pattern. Dictated by: Fred Montes M.D. on 07/02/2018 at 17:28 Approved by: Fred Montes M.D. on 07/02/2018 at 17:28 ECG Data Attestation: I personally reviewed and interpreted this ECG as follows: (sinus tach, rate 116, Q waves likely old (there appears to be lead reversal on previous EKG)) Prior ECG tracings: available for review <Manjeet Sun DO - Last Filed: 07/03/18 07:01> Lab Data Lab Results 07/02/18 07/02/18 07/02/18 Range/Units 17:45 17:45 17:45 WBC 6.8 (4.5-11.0) X10^3/uL RBC 5.11 (4.5-5.9) X10^6/uL Hgb 14.6 (13.5-17.5) g/dL Hct 44.8 (41-53) % MCV 87.7 (80-100) fL MCH 28.5 (26-34) PG MCHC 32.5 (30-36) % RDW 16.9 H (11.6-14.8) % Plt Count 290 (150-400) X10^3/uL Neut % (Auto) 60.6 (50-75) % Lymph % (Auto) 26.3 (25-40) % Hayes % (Auto) 11.5 (3-14) % Eos % (Auto) 0.7 L (2-4) % Baso % (Auto) 0.9 (0-2) % Neut # (Auto) 4100 (5234-0606) /uL Sodium 137 (137-145) mmol/L Potassium 5.0 (3.4-5.1) mmol/L Chloride 94 L (98-107) mmol/L Carbon Dioxide 33 H (22-32) mmol/L BUN 14 (9-20) mg/dL Creatinine 1.00 (0.66-1.25) mg/dL Estimated GFR > 60.0 (>60) mL/min BUN/Creatinine Ratio 14.0 (6-22) Glucose 107 H (70-100) mg/dL Calcium 9.1 (8.4-10.2) mg/dL B-Natriuretic Peptide 707.0 H (<100) Discharge Plan Departure Patient Disposition: Home Clinical Impression: CHF (congestive heart failure) Discharge Date/Time: 07/02/18 20:10 Interventions: ED Discharge Assessment Last Done: 07/02/18 20:10 Instructions: Heart Failure, DI for Heart Failure Activity Restrictions/Additional Instructions: As we talked about, you should return right away if you have any acutely worsening symptoms. Otherwise, since you are feeling better, you can return home. Please take 40 mg of Lasix in the morning and at lunch time (80 mg total) for the next 2 days, then take 60 mg each morning. I have sent in some potassium for you to start as well tomorrow. Please discontinue your herbal medications for now as I am unsure whether this could be causing any fluid retention or interference with your Lasix. You should see a naturopathic physician whom Dr. De is comfortable working with to make sure no interactions if you want to continue taking these. Please call Dr. De's office Thursday morning and arrange for follow-up next week. Your lab work needs to be rechecked in a few days. Prescriptions: New potassium chloride 10 mEq tablet extended release 10 meq PO BID Qty: 14 RF: 0 No Action Blood Pressure Support 1 tab PO BID RF: 0 Platexia 1 tab PO BID RF: 0 furosemide [Lasix] 40 mg tablet 40 mg PO DAILY Qty: 14 RF: 0 Referrals: Aakash De MD [Physician] - Bennie Benavides PA-C [Primary Care Provider] - <Manjeet Sun DO - Last Filed: 07/03/18 07:01> [facility] ED Attending Wanda Attestation: I was available for consultation during this patient's emergency department encounter
--- NOTE | 2018-07-02 17:32 | ED_ITS ---
HPI - SOB/Dyspnea <Lourdes Gerber PA-C - Last Filed: 07/02/18 21:19> General Chief Complaint: Shortness of Breath/Dyspnea Stated Complaint: FLUID IN STOMACH Time Seen by Provider: 07/02/18 17:01 Source: patient Mode of arrival: ambulatory Limitations: no limitations History of Present Illness This 47 year old male returns to the ED with persistent lower extremity swelling that he feels has gradually moved into his abdomen and caused distention. He states there is not any acute change today and has noted this coming on since he was last here. He states that he has been working and doing his usual activities but this keeps him from resting comfortably at night due to the abdominal distension (he has to lay on his side rather than on his back) . He states it is better somewhat 1st thing in the morning. He denies any acute dyspnea or change in his breathing. He denies any chest pain. He states his abdomen is not painful, just feels full and has caused reduced appetite. He has not had vomiting. He denies any new pain in his extremities or any other new symptoms on systems review. He states that he is taking 40 mg of Lasix daily and does not feel like this has improved, however he is not taking his blood pressure or other medications and states he is going ?all natural?, taking naturopathic support supplements instead. He has been taking these for some time prior to this developing Related Data Home Medications Medication Instructions Recorded Confirmed Blood Pressure Support 1 tab PO BID 06/15/18 07/02/18 Platexia 1 tab PO BID 06/15/18 07/02/18 Previous Rx's Medication Instructions Recorded furosemide [Lasix] 40 mg PO DAILY #14 tab 06/13/18 potassium chloride 10 meq PO BID #14 tab 07/02/18 Allergies Allergy/AdvReac Type Severity Reaction Status Date / Time No Known Drug Allergies Allergy Verified 07/02/18 16:52 Review of Systems <Lourdes Gerber PA-C - Last Filed: 07/02/18 21:19> Review of Systems All systems reviewed & are unremarkable except as noted in HPI and below Constitutional Denies weakness Eyes Denies loss of vision Neurologic Denies confusion, Denies loss of vision and Denies weakness Psychiatric Denies confusion Exam <Lourdes Gerber PA-C - Last Filed: 07/02/18 21:19> Narrative Exam Narrative: GENERAL APPEARANCE: Patient sitting comfortably, in no distress. NECK/THYROID: Neck supple, no JVD. No masses LUNGS: Clear to auscultation bilaterally. HEART: Regular rate and rhythm without murmur, rapid, normal S1, S2, no S3 or S4. ABDOMEN: Obese, firm without clear distention, ND, + BS x 4 quadrants EXTREMITIES: No cyanosis moderate pitting to the thighs, also some brawny edema. No calf tenderness NEUROLOGIC: Alert and oriented, normal speech, gait and coordination. Initial Vital Signs Initial Vital Signs: Vital Signs Temperature 96.9 F L 07/02/18 16:46 Pulse Rate 122 H 07/02/18 16:46 Respiratory Rate 20 07/02/18 16:46 Blood Pressure 137/94 H 07/02/18 16:46 Pulse Oximetry 99 07/02/18 16:46 <Manjeet Sun DO - Last Filed: 07/03/18 07:01> Initial Vital Signs Initial Vital Signs: Vital Signs Temperature 96.9 F L 07/02/18 16:46 Pulse Rate 122 H 07/02/18 16:46 Respiratory Rate 20 07/02/18 16:46 Blood Pressure 137/94 H 07/02/18 16:46 Pulse Oximetry 99 07/02/18 16:46 Course <Lourdes eGrber PA-C - Last Filed: 07/02/18 21:19> Additional Information: I reviewed findings with Dr. Sun who saw patient previously. He agrees that leads were likely reversed on previous EKG. Patient has no acute CP, dyspnea or other changes today. He came in due to frustration with worsening edema, has not had f/u with cardiology. W/u is consistent with previous CHF, exacerbation. He is feeling markedly improved after furosemide. He is agreeable with plan to increase his oral dose and f/u with cardiology in a few days. Stressed importance of this as well as rechecking electrolytes at that time. Patient also agreed to return if any changes or acutely worsening sx in the interim Orders Ordered: Discontinued Medications Furosemide (Lasix) 80 mg IV NOW ONE Stop: 07/02/18 17:41 Last Admin: 07/02/18 17:50 Dose: 80 mg Potassium Chloride (Klor-Con M10) 10 meq PO NOW ONE Stop: 07/02/18 18:30 Last Admin: 07/02/18 18:44 Dose: 10 meq Vital Signs - 8 hr 07/02/18 16:46 07/02/18 20:10 Temperature 96.9 F L Pulse Rate 122 H 91 H Respiratory Rate 20 18 Blood Pressure 137/94 H 122/85 Pulse Oximetry 99 98 <Manjeet Sun DO - Last Filed: 07/03/18 07:01> Orders Ordered: Discontinued Medications Furosemide (Lasix) 80 mg IV NOW ONE Stop: 07/02/18 17:41 Last Admin: 07/02/18 17:50 Dose: 80 mg Potassium Chloride (Klor-Con M10) 10 meq PO NOW ONE Stop: 07/02/18 18:30 Last Admin: 07/02/18 18:44 Dose: 10 meq Vital Signs - 8 hr 07/02/18 16:46 07/02/18 20:10 Temperature 96.9 F L Pulse Rate 122 H 91 H Respiratory Rate 20 18 Blood Pressure 137/94 H 122/85 Pulse Oximetry 99 98 MDM - SOB/Dyspnea <Lourdes Gerber PA-C - Last Filed: 07/02/18 21:19> Lab Data Attestation: I reviewed the patient's lab results. Result diagrams: 07/02/18 17:45 07/02/18 17:45 Lab Results 07/02/18 07/02/18 07/02/18 Range/Units 17:45 17:45 17:45 WBC 6.8 (4.5-11.0) X10^3/uL RBC 5.11 (4.5-5.9) X10^6/uL Hgb 14.6 (13.5-17.5) g/dL Hct 44.8 (41-53) % MCV 87.7 (80-100) fL MCH 28.5 (26-34) PG MCHC 32.5 (30-36) % RDW 16.9 H (11.6-14.8) % Plt Count 290 (150-400) X10^3/uL Neut % (Auto) 60.6 (50-75) % Lymph % (Auto) 26.3 (25-40) % [place] % (Auto) 11.5 (3-14) % Eos % (Auto) 0.7 L (2-4) % Baso % (Auto) 0.9 (0-2) % Neut # (Auto) 4100 (4337-7042) /uL Sodium 137 (137-145) mmol/L Potassium 5.0 (3.4-5.1) mmol/L Chloride 94 L (98-107) mmol/L Carbon Dioxide 33 H (22-32) mmol/L BUN 14 (9-20) mg/dL Creatinine 1.00 (0.66-1.25) mg/dL Estimated GFR > 60.0 (>60) mL/min BUN/Creatinine Ratio 14.0 (6-22) Glucose 107 H (70-100) mg/dL Calcium 9.1 (8.4-10.2) mg/dL B-Natriuretic Peptide 707.0 H (<100) Imaging Data Chest x-ray: Radiologist's impression: View Report History [address] [address] XRay Report Signed Patient: Davonte Temple MR#: [id number] : 1970 Acct:[id number] Age/Sex: 47 / M Date of Service: 07/02/18 Loc: ED Accession Number: [id number] Procedure: XR chest 1V Ordering Provider: Lourdes Gerber P.A-C PROCEDURE: XR CHEST 1V INDICATIONS: CONGESTIVE HEART FAILURE TECHNIQUE: One view of the chest was acquired. COMPARISON: [facility], , XR CHEST 2V, 06/13/2018, 14:57. FINDINGS: Surgical changes and devices: None. Lungs and pleura: No pleural effusions or pneumothorax. Lungs are mildly edematous. Mediastinum: Mediastinal contours appear normal. Heart size is globally enlarged, chronic. Bones and chest wall: No suspicious bony lesions. Overlying soft tissues appear unremarkable. IMPRESSION: Acute exacerbation of chronic CHF pattern. Dictated by: Fred Montes M.D. on 07/02/2018 at 17:28 Approved by: Fred Montes M.D. on 07/02/2018 at 17:28 ECG Data Attestation: I personally reviewed and interpreted this ECG as follows: (sinus tach, rate 116, Q waves likely old (there appears to be lead reversal on previous EKG)) Prior ECG tracings: available for review <Manjeet Sun DO - Last Filed: 07/03/18 07:01> Lab Data Lab Results 07/02/18 07/02/18 07/02/18 Range/Units 17:45 17:45 17:45 WBC 6.8 (4.5-11.0) X10^3/uL RBC 5.11 (4.5-5.9) X10^6/uL Hgb 14.6 (13.5-17.5) g/dL Hct 44.8 (41-53) % MCV 87.7 (80-100) fL MCH 28.5 (26-34) PG MCHC 32.5 (30-36) % RDW 16.9 H (11.6-14.8) % Plt Count 290 (150-400) X10^3/uL Neut % (Auto) 60.6 (50-75) % Lymph % (Auto) 26.3 (25-40) % [place] % (Auto) 11.5 (3-14) % Eos % (Auto) 0.7 L (2-4) % Baso % (Auto) 0.9 (0-2) % Neut # (Auto) 4100 (9579-5302) /uL Sodium 137 (137-145) mmol/L Potassium 5.0 (3.4-5.1) mmol/L Chloride 94 L (98-107) mmol/L Carbon Dioxide 33 H (22-32) mmol/L BUN 14 (9-20) mg/dL Creatinine 1.00 (0.66-1.25) mg/dL Estimated GFR > 60.0 (>60) mL/min BUN/Creatinine Ratio 14.0 (6-22) Glucose 107 H (70-100) mg/dL Calcium 9.1 (8.4-10.2) mg/dL B-Natriuretic Peptide 707.0 H (<100) Discharge Plan Departure Patient Disposition: Home Clinical Impression: CHF (congestive heart failure) Discharge Date/Time: 07/02/18 20:10 Interventions: ED Discharge Assessment Last Done: 07/02/18 20:10 Instructions: Heart Failure, DI for Heart Failure Activity Restrictions/Additional Instructions: As we talked about, you should return right away if you have any acutely worsening symptoms. Otherwise, since you are feeling better, you can return home. Please take 40 mg of Lasix in the morning and at lunch time (80 mg total ) for the next 2 days, then take 60 mg each morning. I have sent in some potassium for you to start as well tomorrow. Please discontinue your herbal medications for now as I am unsure whether this could be causing any fluid retention or interference with your Lasix. You should see a naturopathic physician whom Dr. De is comfortable working with to make sure no interactions if you want to continue taking these. Please call Dr. De's office Thursday morning and arrange for follow-up next week. Your lab work needs to be rechecked in a few days. Prescriptions: New potassium chloride 10 mEq tablet extended release 10 meq PO BID Qty: 14 RF: 0 No Action Blood Pressure Support 1 tab PO BID RF: 0 Platexia 1 tab PO BID RF: 0 furosemide [Lasix] 40 mg tablet 40 mg PO DAILY Qty: 14 RF: 0 Referrals: Aakash De MD [Physician] - Bennie Benavides PA-C [Primary Care Provider] - <Manjeet Sun DO - Last Filed: 07/03/18 07:01> [facility] ED Attending Wanda Attestation: I was available for consultation during this patient's emergency department encounter
[2018-07-02] MEDS: FUROSEMIDE 100 MG/10 ML VIAL 80 MG IV (17:50)
[2018-07-02 18:01] LABS: Add Manual Diff / Slide Review NO; Basophils Percent Auto 0.9 % (0-2); Eosinophils Percent Auto 0.7 % (2-4); Hematocrit 44.8 % (41-53); Hemoglobin 14.6 g/dL (13.5-17.5); Lymphocytes Percent Auto 26.3 % (25-40); Mean Corpuscular HGB Conc 32.5 % (30-36); Mean Corpuscular Hemoglobin 28.5 PG (26-34); Mean Corpuscular Volume 87.7 fL (80-100); Monocytes Percent Auto 11.5 % (3-14); Neutrophils Absolute Auto 4100 /uL (3000-5900); Neutrophils Percent Auto 60.6 % (50-75); Platelet Count 290 X10^3/uL (150-400); Red Blood Cell Count 5.11 X10^6/uL (4.5-5.9); Red Cell Distribution Width 16.9 % (11.6-14.8); White Blood Cell Count 6.8 X10^3/uL (4.5-11.0)
[2018-07-02 18:06] LABS: Blood Urea Nitrogen 14 mg/dL (9-20); Calcium 9.1 mg/dL (8.4-10.2); Carbon Dioxide 33 mmol/L (22-32); Chloride 94 mmol/L (98-107); Estimated Glomerular Filt Rate > 60.0 mL/min (>60); Glucose 107 mg/dL (70-100); Sodium 137 mmol/L (137-145)
[2018-07-02 18:09] LABS: HEMOLYSIS 136 (0-50)
[2018-07-02] MEDS: POTASSIUM CHLORIDE 10 MEQ TAB PO (18:44)
--- NOTE | 2018-07-02 19:08 | PC.NURSE ---
pt reports he has been urinating in the toilet .
[2018-07-02 20:10] VITALS: BP 122/85; PULSE 91; RESP 18; O2SAT 98
== END 2018-07-02 20:10 | disposition home or self-care (01) ==
PROVIDERS: Emergency Provider Internal Medicine; Family Provider Family Medicine; PCP Physician Assistant
DX: I50.9 Heart failure, unspecified (principal)
CPT/HCPCS: 36591; 71045; 80048; 83880; 85025; 93005; 93010; 96374; 99282; 99285; J1940